=== PATIENT | female | born 2000 | race American Indian/Alaskan Native ===

== ENCOUNTER 2020-01-26 19:03 | Emergency (ER) | payer OTHER ==
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
[2020-01-26] MEDS ORDERED: oxyCODONE /ACETAMINOPHEN 5-325MG TAB PO ONE (22:20)
[2020-01-26] MEDS ORDERED: NAPROXEN 375 MG TAB PO ONE (22:20)
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
[2020-01-27 01:26] VITALS: BP 124/63
== END 2020-01-26 23:10 | disposition home or self-care (01) ==
LOC: ED 19:03
DX: M54.5 Low back pain (principal); M54.2 Cervicalgia; J45.909 Unspecified asthma, uncomplicated; F12.10 Cannabis abuse, uncomplicated; Z91.018 Allergy to other foods; V89.2XXA Person injured in unspecified motor-vehicle accident, traffic, initial encounter; Y93.89 Activity, other specified; Y92.410 Unspecified street and highway as the place of occurrence of the external cause; Y99.8 Other external cause status
CPT/HCPCS: 70450; 72100; 72125